=== PATIENT | male | born 1955 | race Native Hawaiian/Other Pacific Islander ===

== ENCOUNTER 2018-06-15 13:54 | Outpatient (CLI) | payer OTHER | END 2018-06-15 20:02 | disposition home or self-care (01) | LOC: LABW 13:54 | DX: R30.0 Dysuria (principal) | CPT/HCPCS: 81000 ==

== ENCOUNTER 2018-10-05 13:11 | Outpatient (CLI) | payer OTHER ==
[2018-10-05 13:54] LABS: PLATELET COUNT 130 K/uL (142-355)
[2018-10-05 14:17] LABS: POTASSIUM 4.5 mmol/L (3.6-5.2)
== END 2018-10-05 21:02 | disposition home or self-care (01) ==
LOC: LAB 13:11
PROVIDERS: Internal Medicine
DX: R53.83 Other fatigue (principal); I10 Essential (primary) hypertension; I25.10 Atherosclerotic heart disease of native coronary artery without angina pectoris; Z12.5 Encounter for screening for malignant neoplasm of prostate; N40.0 Benign prostatic hyperplasia without lower urinary tract symptoms
CPT/HCPCS: 80053; 80061; 84153; 84443; 85027